=== PATIENT | male | born 1960 | race Caucasian/White ===

== ENCOUNTER 2017-12-26 13:59 | Inpatient (IN) | payer OTHER ==
[2017-12-26] MEDS ORDERED: Bupivacaine 0.25% HCL 30 ML VIAL ONE (14:56)
[2017-12-26] MEDS ORDERED: Lidocaine 1% w/Epinephrine 1:200K 30 ML VIAL ONE (14:56)
[2017-12-26] MEDS ORDERED: Ondansetron HCl/PF 4 MG/2 ML Vial ONE ×2 (15:11→16:02)
--- NOTE | 2017-12-26 15:33 | HP ---
DATE OF ADMISSION: 12/26/2017 HISTORY OF PRESENT ILLNESS: This is a 57-year-old obese man who was seen earlier today in [place] [facility]. The patient complain of insidious onset periumbilical abdominal p ain, which started yesterday associated with multiple episodes of nausea, but no emesis. Workup was consistent with acute appendicitis. The patient was transferred to [facility] in [place], [place]. At the time of my evaluation, the patient is awake and alert. He reports 8/10 right lower quadrant a bdominal pain associated with nausea and anorexia. He denies any fevers or chills. He denies any di arrhea. Last meal was yesterday. PAST MEDICAL HISTORY: Significant for coronary arterial disease, essential hypertension, hyperlipide treasure, gout, hypothyroidism, and type 2 diabetes mellitus. SURGICAL HISTORY: Significant for coronary arterial bypass with graft. He does not recall how many vessels. This was 10 years ago. Surgical history includes laparoscopic herniorrhaphy and right shou lder repair of rotator cuff. SOCIAL HISTORY: He is a retired brokerage manager. He had over [id number] cigarette smoking history, has not smoked over the last 3 years. He use to drink heavily, does not indulge for over 3 years now. He d enies any illicit drug abuse. FAMILY HISTORY: Noncontributory for this patient's age. PREHOSPITALIZATION MEDICATIONS: Includes trazodone 100 mg p.o. at bedtime, Zoloft 150 mg p.o. daily, pantoprazole 40 mg p.o. daily, lisinopril 20 mg p.o. b.i.d., levothyroxine 25 mcg p.o. daily, gabape ntin 600 mg p.o. t.i.d., Advair Diskus 250/50 one inhaled b.i.d., atorvastatin 40 mg p.o. at bedtime, atenolol 50 mg p.o. b.i.d., aspirin 81 mg p.o. daily, amlodipine 10 mg p.o. daily, allopurinol, he d oes not recall the dosage and he takes this 1 daily. He uses albuterol inhaler p.r.n. The patient w as also on Lantus insulin 60 units q.p.m. and 70 units q.a.m. REVIEW OF SYSTEMS: A 10-point review of systems essentially unremarkable except for as stated in pas t medical history and chief complaint. PHYSICAL EXAMINATION: GENERAL: This reveals a 57-year-old morbidly obese man who is otherwise coherent and interactive and appears stated age. The patient is alert and oriented x3, appears to be in no significant acute dis tress at the time of my evaluation. VITAL SIGNS: Include blood pressure 108/68, pulse 78, respiratory rate 16, temperature 97.6 degrees Fahrenheit, oxygen saturation 94% on 2 liters by nasal cannula oxygen. HEENT: Reveals normocephalic and atraumatic. Pupils equal, round, and reactive to light and accommo dation. He has no sclerae icterus present. No jugular venous distention noted. CARDIOVASCULAR: Reveals regular rate and rhythm. No murmurs or gallops auscultated. LUNGS: Clear to auscultation bilaterally. Breathing regular and unlabored. ABDOMEN: Soft and obese. He has right lower quadrant tenderness to palpation. He has a positive Ro vsing sign. Liver and spleen are otherwise nonpalpable below costal margins. EXTREMITIES: Reveals 2+ radial and pedal pulses bilaterally. No ankle edema is present. NEUROLOGIC: Reveals no focal deficits present. PERTINENT LABORATORY DATA AND IMAGING: Includes CBC with 16,200 white blood cells, hemoglobin 14.6, hematocrit is 47.0, platelet count is 249,000. Metabolic profile: Sodium 136, potassium is 4.8, chl oride is 98, bicarbonate 28, BUN 16, creatinine is 1.53, glucose is 193 mg per deciliter. I have per sonally reviewed a CT scan of the abdomen and pelvis which was obtained in [place] prior to marquis sfer, which reveals dilated appendix which is fluid filled with significant periappendiceal fat stran ding. No pneumoperitoneum or significant free fluid is noted to suggest perforation. IMPRESSION: 1. Acute appendicitis. 2. Morbid obesity. 3. History of coronary artery disease. 4. History of type 2 diabetes mellitus. 5. History of essential hypertension. 6. History of chronic obstructive pulmonary disease. PLAN: Laparoscopic appendectomy. The above findings and plan has been discussed with the patient in the presence of his nurse. I have advised the patient of the risks and benefits of the proposed terell terese. Risks include, but not limited to bleeding, infection, injury to bowel or surrounding structur es. Additionally, the patient is at risk for having a perioperative myocardial infarction or difficu lties with extubation postoperatively. This is due to his significant comorbidity. The patient joshua cates understanding of information I have given him today. I have answered his questions. The patie nt has granted consent for this admission and surgical intervention.
[2017-12-26] MEDS ORDERED: ePHEDrine/0.9% NaCl/PF SYRINGE 50 mg/10 ml ONE (16:02)
[2017-12-26] MEDS ORDERED: Succinylcholine Chloride 20 MG/ML 10 ml SYRINGE FS ONE (16:02)
[2017-12-26] MEDS ORDERED: Hydrocortisone Sod Succ/PF 100 mg/2 ml Vial ONE (16:02)
[2017-12-26] MEDS ORDERED: Lidocaine 1% PF 5 ML VIAL ONE (16:02)
[2017-12-26] MEDS ORDERED: Naloxone HCl 0.4 mg/ml Vial ONE (16:02)
[2017-12-26] MEDS ORDERED: PHENYLEPHRINE-NS 100 MCG/ML 10 ML SYRINGE ONE (16:02)
[2017-12-26] MEDS ORDERED: Morphine 10 MG/ML VIAL ONE (16:07)
[2017-12-26] MEDS ORDERED: Fentanyl 100 MCG/2 ML VIAL ONE (16:07)
[2017-12-26] MEDS ORDERED: SUGAMMADEX SODIUM 500 MG/5 ML VIAL ONE (18:10)
[2017-12-26] MEDS ORDERED: SUGAMMADEX SODIUM 200 MG/2 ML VIAL ONE (18:11)
[2017-12-26] MEDS ORDERED: Ondansetron HCl/PF 4 MG/2 ML Vial IVP PRN (18:19)
[2017-12-26] MEDS ORDERED: Insulin Regular 300 UNITS/3 ML VIAL SC PRN (18:19)
[2017-12-26] MEDS ORDERED: Promethazine HCl 25 MG/ML VIAL IM PRN (18:19)
[2017-12-26] MEDS ORDERED: Morphine 4 MG/ML Carpuject SLOW IVP PRN (18:19)
[2017-12-26] MEDS ORDERED: Dextrose 5% in Water 1,000 ML IV PRN ×2 (18:19→21:41)
[2017-12-26] MEDS ORDERED: hydrALAZINE 20 MG/ML VIAL SLOW IVP PRN (18:19)
[2017-12-26] MEDS ORDERED: Dextrose 50% Abboject 50 ML SYRINGE SLOW IVP PRN ×2 (18:19→21:41)
[2017-12-26 20:00] LABS: #Eosinphils 0.1 thou/uL (0.0-0.7); #Lymphocytes 2.6 thou/uL (1.20-3.40); #Neutrophils 12.1 thou/uL (1.40-6.50); %Eosinophils 0.8 % (0.0-10.0); %Lymphocytes 16.7 % (21.0-51.0); %Monocytes 6.3 % (0.0-10.0); %Neutrophils 76.2 % (42.0-75.0); Hemoglobin 13.3 g/dL (14.0-18.0); Mean Corpuscular HGB CONC 31.4 g/dL (32.0-36.0); Mean Corpuscular Hemoglobin 29.3 pg (27.0-31.0); Mean Corpuscular Volume 93.3 fl (80.0-94.0); Mean Platelet Volume 7.6 fL (7.4-10.4); Platelet Count 223 thou/uL (130-400); RBC Distribution Width 15.5 % (11.5-14.5); Red Blood Cell (RBC) Count 4.54 mill/uL (4.70-6.10); White Blood Cell (WBC) Count 15.8 thou/uL (4.8-10.8)
--- NOTE | 2017-12-26 20:12 | RAD ---
CHEST ONE VIEW 12/26/17 HISTORY: Respiratory failure. COMPARISON: Chest radiograph 03/15/17. FINDINGS: The patient is intubated. Endotracheal tube tip is above the clavicles. The lungs are hypoinflated. S mall left effusion. Mild interstitial prominence. Calcified granulomas as well as mediastinal lymph nodes. IMPRESSION: 1. Endotracheal tube tip position above the clavicles. 2. Small left effusion. 3. Multiple old left sided rib fractures. 4. Mild interstitial prominence can be seen with pulmonary venous hypertension. POS: [facility]
[2017-12-26 20:19] LABS: Anion Gap 11 mmol/L (10-20); BUN (Urea Nitrogen) 17 mg/dL (8.4-25.7); Calc. Creatinine Clearance 0 mL/min (70-130); Calcium 8.1 mg/dL (7.8-10.44); Carbon Dioxide 27 mmol/L (22-29); Chloride 103 mmol/L (98-107); Estimated GFR-MDRD 42; Glucose 191 mg/dL (70-105); Magnesium 1.5 mg/dL (1.6-2.6); Phosphorus 3.5 mg/dL (2.3-4.7); Potassium 5.7 mmol/L (3.5-5.1); Sodium 135 mmol/L (136-145)
[2017-12-26 20:26] LABS: Troponin I 0.014 ng/mL (< 0.028)
--- NOTE | 2017-12-26 20:56 | OP ---
DATE OF OPERATION: 12/26/2017 PREOPERATIVE DIAGNOSIS: Acute appendicitis. POSTOPERATIVE DIAGNOSIS: Acute suppurative retrocecal appendicitis with local perforation. SURGERY PERFORMED: Laparoscopic appendectomy. SURGEON: Dr. Ulysses Traylor. ANESTHESIA: General endotracheal. ESTIMATED BLOOD LOSS: 50 mL. FLUIDS GIVEN: 3000 mL crystalloids. SPONGE AND INSTRUMENT COUNT: Certified as correct x2. COMPLICATIONS: None apparent at the time of operation. INDICATIONS FOR OPERATION: This is a 57-year-old morbidly obese man with history of harrington ry artery disease, diabetes mellitus, COPD, and essential hypertension. Patient presented with 24-ho ur history of abdominal pain. Clinical and radiographic examination was consistent with acute append icitis, for which patient was brought to the operating room for appendectomy. FINDINGS: Consistent with dilated suppurative retrocecal appendicitis with local perforation. No ab scess found. DESCRIPTION OF PROCEDURE: Informed consent obtained from the patient who was brought to the operatin g room and placed in supine position. Following general anesthesia, Rasheed catheter was inserted and placed to bedside drain. The abdomen was sterilely prepped and draped in the usual fashion. The ski n below the umbilicus was infiltrated with 0.25% Marcaine with epinephrine. Small curvilinear infrau mbilical incision is made using an 11 scalpel. Umbilical stalk was grasped with Paul and elevated. A Veress needle was inserted through the incision and placed in the peritoneal cavity, through whic h the abdomen was insufflated with 3 liters of CO2 gas. An intra-abdominal pressure was noted at 2 m mHg. Following abdominal insufflation, Veress needle was removed and a 5-mm trocar inserted into the peritoneal cavity using Visiport under laparoscopy. Laparoscopy confirmed proper placement of the p ort, no injuries to underlying structures. Additional laparoscopy reveals the right lower quadrant c ompletely encased by omental adhesions as well as multiple adherent loops of small bowel. Under lapa roscopy, a 5-mm suprapubic and 12-mm left lower quadrant ports were placed after the overlying skin w ere infiltrated with 0.25% Marcaine with epinephrine and appropriate incisions made. Patient was alberto dena in a Trendelenburg position, rotated to his left. Under laparoscopy, I introduced Prestige grasp er from the left lower quadrant port site using this to bluntly take down omental adhesions to reveal adherent multiple loops of small bowel, which were bluntly taken down without any injuries to bowel itself. The retrocecal appendix is noted with local perforation approximately 3 cm above the ileocec al junction. The tip of the appendix itself was adhered to the neighboring sigmoid colon. Too large epiploic fat attempted to patch the local perforation. At this juncture, an Endo Racquel forceps wa s then used to grasp the appendix, which was elevated. I used [place] dissector to create a rent th rough the mesoappendix at the base, through which an Endo-ANDREW with a white load was introduced and th e mesoappendix was divided. Using blue load of the Endo-ANDREW, the appendix itself was divided at the base. The suppurative appendix delivered out of the abdominal cavity using an EndoCatch. Operative site was inspected for good hemostasis. Finding no other pathology, laparoscopy was terminated. Fas azar of the left lower quadrant ports were closed using 0-Vicryl suture and Endo closure device under laparoscopy. Once this suture was placed in the left lower quadrant port site, active bleeding was n oted at the site, at which time we lost approximately 50 mL of blood. Hemostasis was readily achieve d once the suture was cinched into place. The abdomen was then irrigated with saline. Next, #19 Luis Alberto ke drain was introduced into the pelvis and allowed to exit the abdominal cavity through the suprapub ic port site. Abdomen was desufflated. Next, all sponges and instruments were removed and accounted for. Skin incisions are then closed using 4-0 Monocryl suture in subcuticular fashion. The drain w as secured to intraabdominal wall using 2-0 silk suture. Dermabond was applied over an incisional cl osure. Patient tolerated the operation without any apparent complication and was returned to recover y room in satisfactory condition.
[2017-12-26] MEDS ORDERED: Magnesium Sulfate 4 GM in Sodium Chloride 0.9% 250 ML 250 ML IVPB SCH (21:00)
[2017-12-26] MEDS: Lactated Ringer's 1,000 ML IV SCH (21:05)
[2017-12-26] MEDS: Atorvastatin Calcium 40 MG TAB PO SCH (21:36)
[2017-12-26] MEDS: traZODone HCl 50 MG TAB PO SCH (21:36)
[2017-12-26] MEDS: traMADol HCl 50 MG TAB PO PRN (21:39)
[2017-12-26] MEDS ORDERED: HumaLOG 300 UNITS/3 ML VIAL SC PRN (21:41)
[2017-12-26 21:56] VITALS: BMI 30.9
[2017-12-27] MEDS: Acetaminophen 500 MG TAB PO SCH ×5 (00:20→23:05)
[2017-12-27] MEDS: Piperacillin/Tazobactam 3.375 GM in Sodium Chloride 0.9% 100 ML IVPB SCH ×5 (01:09→23:04)
[2017-12-27] MEDS: Lactated Ringer's 1,000 ML IV SCH (04:21)
[2017-12-27 04:24] LABS: #Lymphocytes 0.7 thou/uL (1.20-3.40); #Monocytes 0.2 thou/uL (0.11-0.59); #Neutrophils 11.5 thou/uL (1.40-6.50); %Basophils 0.1 % (0.0-1.0); %Eosinophils 0.3 % (0.0-10.0); %Lymphocytes 5.4 % (21.0-51.0); %Monocytes 1.3 % (0.0-10.0); %Neutrophils 92.9 % (42.0-75.0); Hemoglobin 12.9 g/dL (14.0-18.0); Mean Corpuscular Hemoglobin 28.9 pg (27.0-31.0); Mean Corpuscular Volume 93.5 fl (80.0-94.0); Mean Platelet Volume 7.8 fL (7.4-10.4); Platelet Count 227 thou/uL (130-400); RBC Distribution Width 15.2 % (11.5-14.5); Red Blood Cell (RBC) Count 4.46 mill/uL (4.70-6.10); White Blood Cell (WBC) Count 12.4 thou/uL (4.8-10.8)
[2017-12-27 04:42] LABS: Anion Gap 12 mmol/L (10-20); BUN (Urea Nitrogen) 22 mg/dL (8.4-25.7); Calc. Creatinine Clearance 54 mL/min (70-130); Calcium 8.4 mg/dL (7.8-10.44); Carbon Dioxide 26 mmol/L (22-29); Chloride 97 mmol/L (98-107); Estimated GFR-MDRD 39; Glucose 374 mg/dL (70-105); Magnesium 2.8 mg/dL (1.6-2.6); Phosphorus 3.5 mg/dL (2.3-4.7); Potassium 5.7 mmol/L (3.5-5.1); Sodium 129 mmol/L (136-145)
[2017-12-27] MEDS: traMADol HCl 50 MG TAB PO PRN ×2 (05:09→11:26)
[2017-12-27] MEDS: Levothyroxine Sodium 25 MCG TAB PO SCH (05:59)
[2017-12-27] MEDS ORDERED: Insulin Regular 300 UNITS/3 ML VIAL SC PRN (09:07)
[2017-12-27] MEDS ORDERED: Bisacodyl 10 MG SUPP PR PRN (09:11)
[2017-12-27] MEDS: Allopurinol 300 MG TAB PO SCH (09:14)
[2017-12-27] MEDS: Enoxaparin Sodium 40 MG/0.4 ML SYRINGE SC SCH (09:14)
[2017-12-27] MEDS: Gabapentin 300 MG CAP PO SCH ×3 (09:17→20:07)
[2017-12-27] MEDS ORDERED: Sodium Chloride 0.9% 1,000 ML IV SCH ×2 (11:00→16:16)
[2017-12-27] MEDS ORDERED: Tamsulosin HCl 0.4 MG CAP PO SCH (11:00)
[2017-12-27] MEDS: Insulin Regular 300 UNITS/3 ML VIAL SC PRN ×2 (11:58→18:02)
--- NOTE | 2017-12-27 14:17 | PRG ---
DATE OF SERVICE: 12/27/2017 HISTORY: This is a 57-year-old man who is postoperative day #1, status post laparoscopic appendectom y. Patient reports adequate pain control. He tolerates a clear liquid diet. Denies any nausea or v omiting. Yesterday, patient had a slow postoperative recovery marked by hypoxemia requiring multiple courses of bronchodilator therapy as well as O2 supplementation via nasal cannula. OBJECTIVE: VITAL SIGNS: This morning includes blood pressure 126/68, pulse 97, respiratory rate is 20, temperat ure 98 degrees Fahrenheit, oxygen saturation 90% on 2 liters by nasal cannula oxygen. HEENT: Examination reveals normocephalic and atraumatic. Pupils are equal, round, reactive to light and accommodation. NECK: He has no jugular venous distention noted. HEART: Reveals regular rate and rhythm. No murmurs or gallops auscultated. LUNGS: Clear to auscultation bilaterally. Breathing regular and unlabored. ABDOMEN: Soft and distended with incisional tenderness to palpation. Bowel sounds in all 4 quadrant s, normoactive. LABORATORY DATA: Laboratory findings today includes CBC with 12,400 white blood cells, hemoglobin an d hematocrit stable at 12.9 and 41.7 respectively. Platelet count is 227,000. Metabolic profile: S odium 129, potassium is 5.7, chloride is 97, BUN is 22, creatinine is 1.80, and glucose is 374. Magn esium is 2.8, phosphorus is 3.5. IMPRESSION: 1. Postoperative day #1 status post laparoscopic appendectomy for gangrenous appendix. 2. Postoperative ileus. 3. Postoperative hypoxemia, likely secondary to atelectasis. 4. Acute hyponatremia, likely pseudohyponatremia secondary to hyperglycemia. 5. Acute hyperkalemia. 6. Acute on chronic renal insufficiency. PLAN: 1. Continue with nasal cannula oxygen supplementation and increase pulmonary toilet. 2. We will reinitiate IV fluid resuscitation using normal saline. 3. The patient will be provided with insulin to treat current hyperglycemia as well as the hyperkale treasure. 4. We will continue with a clear liquid diet at this time until adequate return of bowel function. The patient will be transferred to general floor to facilitate increasing activity.
[2017-12-27] MEDS: traZODone HCl 50 MG TAB PO SCH (20:07)
[2017-12-27] MEDS: Famotidine 20 MG TAB PO SCH (20:07)
[2017-12-27] MEDS: Atorvastatin Calcium 40 MG TAB PO SCH (20:07)
[2017-12-27] MEDS: Senokot S 8.6-50 MG TAB PO SCH (20:07)
[2017-12-27] MEDS ORDERED: Furosemide 40 MG/4 ML VIAL SLOW IVP SCH (21:30)
[2017-12-28] MEDS: Insulin Regular 300 UNITS/3 ML VIAL SC PRN ×5 (00:49→21:00)
[2017-12-28 04:34] LABS: Anion Gap 9 mmol/L (10-20); BUN (Urea Nitrogen) 29 mg/dL (8.4-25.7); Calc. Creatinine Clearance 50 mL/min (70-130); Calcium 8.7 mg/dL (7.8-10.44); Carbon Dioxide 30 mmol/L (22-29); Chloride 93 mmol/L (98-107); Estimated GFR-MDRD 35; Glucose 287 mg/dL (70-105); Magnesium 2.4 mg/dL (1.6-2.6); Phosphorus 2.9 mg/dL (2.3-4.7); Potassium 5.4 mmol/L (3.5-5.1); Sodium 127 mmol/L (136-145)
--- NOTE | 2017-12-28 06:26 | PRG ---
DATE OF SERVICE: 12/27/2017 SUBJECTIVE: This is a 57-year-old male with postop day #1 from laparoscopic appendectomy. At this t jeanette, the patient is currently satting in the high 80s with no respiratory distress noted. OBJECTIVE: Vital signs have been reviewed. Otherwise, as noted above, have been stable. Physical e xam - Lung sounds appear to be clear, somewhat small expiratory wheeze on the right. Abdomen is mild ly distended. Generalized tenderness noted. Hypoactive bowel sounds. ASSESSMENT AND PLAN: Continue care as noted in daily progress note. due to the hypoxemia. Cu rrently 40 mg Lasix have been ordered and BiPAP for tonight. Continue to monitor. Discharge disposi tion is pending.
[2017-12-28] MEDS: Acetaminophen 500 MG TAB PO SCH ×3 (06:32→17:26)
[2017-12-28] MEDS: Levothyroxine Sodium 25 MCG TAB PO SCH (06:32)
[2017-12-28] MEDS: Piperacillin/Tazobactam 3.375 GM in Sodium Chloride 0.9% 100 ML IVPB SCH ×3 (06:32→17:26)
[2017-12-28 08:39] LABS: #Lymphocytes 0.9 thou/uL (1.20-3.40); #Monocytes 0.4 thou/uL (0.11-0.59); #Neutrophils 13.1 thou/uL (1.40-6.50); %Basophils 0.1 % (0.0-1.0); %Eosinophils 0.2 % (0.0-10.0); %Monocytes 2.9 % (0.0-10.0); %Neutrophils 90.8 % (42.0-75.0); Hemoglobin 12.4 g/dL (14.0-18.0); Mean Corpuscular HGB CONC 30.5 g/dL (32.0-36.0); Mean Corpuscular Hemoglobin 28.4 pg (27.0-31.0); Mean Corpuscular Volume 93.2 fl (80.0-94.0); Mean Platelet Volume 7.7 fL (7.4-10.4); Platelet Count 263 thou/uL (130-400); RBC Distribution Width 15.1 % (11.5-14.5); Red Blood Cell (RBC) Count 4.37 mill/uL (4.70-6.10); White Blood Cell (WBC) Count 14.4 thou/uL (4.8-10.8)
[2017-12-28] MEDS ORDERED: Bisacodyl 10 MG SUPP PR SCH (09:00)
[2017-12-28] MEDS: Gabapentin 300 MG CAP PO SCH ×3 (09:18→20:41)
[2017-12-28] MEDS: Tamsulosin HCl 0.4 MG CAP PO SCH (09:18)
[2017-12-28] MEDS: Senokot S 8.6-50 MG TAB PO SCH ×2 (09:18→20:41)
[2017-12-28] MEDS: Enoxaparin Sodium 40 MG/0.4 ML SYRINGE SC SCH (09:19)
[2017-12-28] MEDS: traMADol HCl 50 MG TAB PO PRN (09:19)
[2017-12-28] MEDS: Allopurinol 300 MG TAB PO SCH (09:23)
[2017-12-28] MEDS: Insulin Detemir 100 UNITS/ML 13 UNITS in Pre-Filled Syringe 1 EACH SC SCH (09:44)
--- NOTE | 2017-12-28 10:47 | PRG ---
DATE OF SERVICE: 12/28/2017 SUBJECTIVE: Mr. Frank is postoperative day #2, status post laparoscopic appendectomy for gangrenous appendix. Overnight, the patient required high fraction of oxygen to treat acute hypoxemia. He was given a dose of furosemide achieving over 1000 mL of urinary output. Placed on BiPAP overnight. This morning, patient is awake and alert. He is on nasal cannula oxygen and reports no dyspnea. He is tolerating clear liquid diet, has had no emesis or nausea. He denies any flatus or bowel movement nevertheless. OBJECTIVE: VITAL SIGNS: Currently includes blood pressure 152/86, pulse 96, respiratory rate 16, temperature is 98.9 degrees Fahrenheit and oxygen saturation 99% on 2 liters by nasal cannula oxygen. HEENT: Reveals normocephalic and atraumatic. Pupils are equally round and reactive to light and acc ommodation. His extraocular muscles are intact bilaterally. No sclerae icterus present. The patien t has no jugular venous distention noted. HEART: Reveals regular rate and rhythm. No murmurs or gallops auscultated. LUNGS: Clear to auscultation bilaterally. Breathing regular and unlabored. ABDOMEN: Soft and distended. Incisions remain intact, clean, and dry. He has moderate incisional t enderness to palpation with no gross rebound tenderness present. Bowel sounds in all four quadrants appear normoactive. EXTREMITIES: Reveals 2+ radial and pedal pulses bilaterally. No ankle edema is present. NEUROLOGIC: Reveals no focal deficits present. PERTINENT LABORATORY FINDINGS: Today includes a CBC with 14,400 white blood cells, hemoglobin and he matocrit are stable at 12.4 and 40.7 respectively. Platelet count is stable at 263,000. Metabolic profile: Sodium 127, potassium is 5.4, chloride is 93, bicarbonate 30, BUN 29, creatinine is 1.97, glucose is 287, magnesium 2.4 and phosphorus is 2.9. IMPRESSION: 1. Postoperative day #2, status post laparoscopic appendectomy. 2. Acute on chronic renal insufficiency, likely acute tubular necrosis secondary to karli-induction h ypertension. 3. Acute hyponatremia secondary to increasing free water intake, complicated by also acute pseudohyp onatremia. 4. Resolving acute hyperkalemia. 5. Acute hyperglycemia, improving. PLAN: 1. Continue gentle rehydration. 2. I will ask Nephrology to evaluate the patient with regards to the acute on chronic renal insuffic iency. Above findings and plan discussed with the patient who indicates understanding of the informa tion given. The patient will be transferred to general surgical floor where I will continue to increase his activ ities as tolerated.
--- NOTE | 2017-12-28 11:13 | PQF ---
DATE: 12-28-17 ATTN: DR. OMER SOUSA Please exercise your independent, professional judgment in responding to the clarification form. Clinical indicators are provided on the bottom of this form for your review Please check appropriate box(s): [ X ] Acute Renal Failure (ARF) / Acute Kidney Injury (CARMINA) [ ] Acute on Chronic Renal Failure please specify Stage of CKD (see below) [ X ] CKD without ARF/CARMINA please specify Stage of CKD____Stage III [ ] Other diagnosis [ ] Unable to determine In addition, please specify: Present on Admission (POA): [X ] Yes [ ] No [ ] Unable to determine National Kidney Foundation Guidelines for CKD Staging Stage I Kidney damage with normal or increased GFR GFR > 90 Stage IIKidney damage with mildly decreased GFR GFR 60-89 Stage III Kidney damage with moderately decreased GFR GFR 30-59 Stage IVKidney damage with severely decreased GFR GFR 16-29 Stage VKidney failure GFR<15 ESRD End Stage Renal Disease On dialysis Acute Renal Failure/Acute Kidney Failure defined as: Increases in SCr by (>) 0.3 mg/dl within 48 hours OR- Increases in SCr by (>) 1.5 times baseline, known or presumed to have occurred within the prior 7 days OR- Urine volume < 0.5 ml/kg/hour for 6 hours (KDIGO supplement 2012 for RIFLE/MELECIO criteria) For continuity of documentation, please document condition throughout progress notes and discharge summary. Thank You. CLINICAL INDICATORS - SIGNS / SYMPTOMS / LABS PN DR. SOUSA 12-27-17: ACUTE ON CHRONIC RENAL INSUFFICIENCY GFR: 2-18: 42 2-22-18: 39 2--18: 35 CREATININE: 2--18: 1.69 2-22-18: 1.80 2-23-18: 1.97 BUN: 2--18: 17 2-22-18: 22 2-23-18: 29 RISK FACTORS: PN DR. SOUSA 12-27-17: ACUTE ON CHRONIC RENAL INSUFFICIENCY ER: DM 2, HYPERLIPIDEMIA, HTN, COPD, NH, CABG , TOBACCO USER, FORMER DRUG USER (MAR ) LASIX IVP TREATMENTS: PN DR. SOUSA 12-07-17: WE WILL REINITIATE IVF RESUSCITATION USING NS (This form is maintained as a part of the permanent medical record) 2014 [employer]. All Rights Reserved [email or web address] [email or web address] Office: [phone] DIA
--- NOTE | 2017-12-28 11:36 | PQF ---
DATE: 12-28-17 ATTN: DR. OMER SOUSA Please exercise your independent, professional judgment in responding to the clarification form. Clinical indicators are provided on the bottom of this form for your review Please check appropriate box(s): [ ] Acute Respiratory Failure: [ X ] with Hypoxia[ ] with Hypercapnia [ X] Acute Respiratory Failure due to COPD [ ] Acute Respiratory Insufficiency following (if applicable): [ ] trauma [ ] surgery [ ] Other diagnosis [ ] Unable to determine In addition, please specify: Present on Admission (POA): [ X] Yes [ ] No [ ] Unable to determine For continuity of documentation, please document condition throughout progress notes and discharge summary. Thank You. CLINICAL INDICATORS - SIGNS / SYMPTOMS / LABS PN DR. SOUSA 12-27-17: YESTERDAY, PT HAD A SLOW POSTOPERATIVE RECOVERY MARKED BY HYPOXEMIA REQUIRING MULTIPLE COURSES OF BRONCHODILATORS THERAPY WELL O2 SUPPLEMENTAL VIA NASAL CANULA. O2 SAT 90% ON 2L BY NASAL CANNULA. POSTOPERATIVE HYPOXEMIA, LIKELY SECONDARY TO ATELECTASIS. RISK FACTORS: PROCEDURE: 12-26-17: LAP APPENDECTOMY H&P: HX OF SMOKING, HX OF COPD TREATMENTS: O2 2-4 L NC MONITORING O2 SATS PN DR. SOUSA 12-27-17: YESTERDAY, PT HAD A SLOW POSTOPERATIVE RECOVERY MARKED BY HYPOXEMIA REQUIRING MULTIPLE COURSES OF BRONCHODILATOR THERAPY WELL O2 SUPPLEMENTAL VIA NASAL CANULA. O2 SAT 90% ON 2L BY NASAL CANNULA. POSTOPERATIVE HYPOXEMIA, LIKELY SECONDARY TO ATELECTASIS. (This form is maintained as a part of the permanent medical record) 2015 [employer]. All Rights Reserved [email or web address] Office: [phone] [facility] THROAT HOSPITALVadim
[2017-12-28] MEDS: Artificial Tears 18 DROP/0.9 ML EA EYE PRN (12:52)
[2017-12-28] MEDS: Atorvastatin Calcium 40 MG TAB PO SCH (20:40)
[2017-12-28] MEDS: traZODone HCl 50 MG TAB PO SCH (20:41)
[2017-12-28] MEDS: Famotidine 20 MG TAB PO SCH (20:59)
--- NOTE | 2017-12-28 22:58 | CON ---
DATE OF CONSULTATION: 12/28/2017 CONSULTING PHYSICIAN: Dr. Traylor. REASON FOR CONSULTATION: Acute kidney injury. REASON FOR ADMISSION: Abdominal pain. HISTORY OF PRESENT ILLNESS: This is a 57-year-old male with history of coronary artery disease, hype rtension, hyperlipidemia, diabetes who came to the hospital with abdominal pain, has been evaluated a nd was found to have acute appendicitis and had a laparoscopic appendectomy done on 12/26/2017 that i s 2 days back and apparently had some hypertensive episode during the procedure. Patient's creatinin e on admission was 1.69. Baseline creatinine is around 1.3 to 1.5 and this morning it was 1.97 and w ith hyperkalemia. Patient was given a dose of Lasix yesterday and patient is having significant amou nt of p.o. fluid intake. Patient denies any nausea, vomiting, no shortness of breath or chest pain, pain is controlled. No fever or chills. PAST MEDICAL HISTORY: Positive for coronary artery disease, hypertension, hyperlipidemia, gout, hypo thyroidism, type 2 diabetes. PAST SURGICAL HISTORY: Coronary artery bypass graft, hernia repair. HOME MEDICATIONS: Trazodone, Zoloft, pantoprazole, lisinopril, levothyroxine, gabapentin, Advair, at orvastatin, atenolol, aspirin, amlodipine, allopurinol, albuterol, Lantus. ALLERGIES: No known drug allergies. SOCIAL HISTORY: Previous smoker and drinks heavily. No illicit drug abuse. FAMILY HISTORY: No history of kidney disease. REVIEW OF SYSTEMS: The following complete review of systems was negative, unless otherwise mentioned in the HPI or below: Constitutional: Weight loss or gain, ability to conduct usual activities. Sk in: Rash, itching. Eyes: Double vision, pain. ENT/Mouth: Nose bleeding, neck stiffness, pain, te nderness. Cardiovascular: Palpitations, dyspnea on exertion, orthopnea. Respiratory: Shortness of breath, wheezing, cough, hemoptysis, fever, or night sweats. Gastrointestinal: Poor appetite, abdo harsh pain, heartburn, nausea, vomiting, constipation, or diarrhea. Genitourinary: Urgency, frequen cy, dysuria, nocturia. Musculoskeletal: Pain, swelling. Neurologic/Psychiatric: Anxiety, depressi on. Allergy/Immunologic: Skin rash, bleeding tendency. PHYSICAL EXAMINATION: GENERAL: This is an obese male in no apparent distress. VITAL SIGNS: Temperature 97.9, pulse 96, respiratory rate 20, blood pressure 152/87. HEENT: Atraumatic, normocephalic. Oral mucosa is moist. NECK: Supple, no masses. CARDIOVASCULAR: S1, S2 heard. Rate and rhythm regular. No murmurs or gallops auscultated. RESPIRATORY: Crackles. ABDOMEN: Soft. MUSCULOSKELETAL: 1+ edema. DERMATOLOGIC: No skin rash. NEUROLOGIC: Alert, awake. PSYCHIATRIC: Mood and affect normal. LABORATORY DATA: Hemoglobin is 12.4. Potassium is 5.4, BUN is 29, creatinine is 1.9, sodium is 127, potassium 5.4. ASSESSMENT AND PLAN: 1. Acute kidney injury on chronic kidney disease stage 3, most likely from acute tubular necrosis, b ut seems like his urine output is improving and plan is to avoid any nephrotoxins and we will hold La six and monitor. Continue oral hydration. 2. Hyponatremia, most likely from polydipsia. Patient was advised to limit fluid intake where he ne eds probably around 2 liters of fluid. 3. Hypertension. 4. Hyperkalemia. Limit potassium with diet. 5. Alkalosis. 6. Hyperglycemia. 7. Anemia, mild. 8. Leukocytosis, getting better. 9. Acute appendicitis. It seems like his urine output is improving. Plan is to avoid nephrotoxins and monitor renal functio n at this point. We will continue to follow. I will recommend changing Lovenox to heparin renally-d osed and avoid nephrotoxins. Thank you for the consultation. Continue antibiotics and supportive care.
--- NOTE | 2017-12-28 23:43 | PRG ---
DATE OF SERVICE: 12/28/2017 SUBJECTIVE: He is postop day #2 from laparoscopic appendectomy for gangrenous appendix. No flatus or bowel movements at this time. No vomiting or nausea. OBJECTIVE: VITAL SIGNS: Vital signs have been reviewed, otherwise have been stable. Physical exam is unchanged other than noted in the daily progress note. ASSESSMENT AND PLAN: Continue care as noted in the daily progress noted. Continue to monitor. Disc harge disposition is pending. We are awaiting bowel movement and flatus.
[2017-12-29] MEDS: Piperacillin/Tazobactam 3.375 GM in Sodium Chloride 0.9% 100 ML IVPB SCH ×5 (00:04→20:49)
[2017-12-29] MEDS: Acetaminophen 500 MG TAB PO SCH ×5 (02:00→23:54)
[2017-12-29 05:00] LABS: #Monocytes 0.4 thou/uL (0.11-0.59); #Neutrophils 11.8 thou/uL (1.40-6.50); %Basophils 0.1 % (0.0-1.0); %Eosinophils 0.1 % (0.0-10.0); %Lymphocytes 7.4 % (21.0-51.0); %Monocytes 3.1 % (0.0-10.0); %Neutrophils 89.4 % (42.0-75.0); Anion Gap 14 mmol/L (10-20); BUN (Urea Nitrogen) 33 mg/dL (8.4-25.7); Calc. Creatinine Clearance 58 mL/min (70-130); Calcium 9.1 mg/dL (7.8-10.44); Carbon Dioxide 30 mmol/L (22-29); Chloride 91 mmol/L (98-107); Estimated GFR-MDRD 42; Glucose 291 mg/dL (70-105); Hemoglobin 12.8 g/dL (14.0-18.0); Magnesium 2.2 mg/dL (1.6-2.6); Mean Corpuscular HGB CONC 31.4 g/dL (32.0-36.0); Mean Corpuscular Hemoglobin 28.6 pg (27.0-31.0); Mean Corpuscular Volume 90.9 fl (80.0-94.0); Mean Platelet Volume 7.4 fL (7.4-10.4); Phosphorus 2.7 mg/dL (2.3-4.7); Platelet Count 301 thou/uL (130-400); Potassium 5.5 mmol/L (3.5-5.1); RBC Distribution Width 15.1 % (11.5-14.5); Red Blood Cell (RBC) Count 4.48 mill/uL (4.70-6.10); Sodium 129 mmol/L (136-145); White Blood Cell (WBC) Count 13.3 thou/uL (4.8-10.8)
[2017-12-29] MEDS: Levothyroxine Sodium 25 MCG TAB PO SCH (06:28)
[2017-12-29] MEDS: Gabapentin 300 MG CAP PO SCH ×3 (07:34→20:50)
[2017-12-29] MEDS: Allopurinol 300 MG TAB PO SCH (07:34)
[2017-12-29] MEDS: Insulin Detemir 100 UNITS/ML 13 UNITS in Pre-Filled Syringe 1 EACH SC SCH (07:35)
[2017-12-29] MEDS: Senokot S 8.6-50 MG TAB PO SCH ×2 (07:35→22:18)
[2017-12-29] MEDS: Tamsulosin HCl 0.4 MG CAP PO SCH (07:35)
[2017-12-29] MEDS: Enoxaparin Sodium 40 MG/0.4 ML SYRINGE SC SCH (07:36)
[2017-12-29] MEDS: Insulin Regular 300 UNITS/3 ML VIAL SC PRN ×3 (11:34→20:55)
[2017-12-29] MEDS ORDERED: Fludrocortisone Acetate 0.1 MG TAB PO SCH (12:00)
--- NOTE | 2017-12-29 12:13 | PRG ---
DATE OF SERVICE: 12/29/2017 SUBJECTIVE: Patient was seen and examined at bedside and overnight events noted. Patient denies any shortness of breath or chest pain or palpitation. No history of nausea or vomitin g or diarrhea or fever or chills or cramps. OBJECTIVE: GENERAL: This is a well-built male, in no apparent distress. VITAL SIGNS: Temperature 98.1, pulse 90, respiratory rate 18, blood pressure 116/89. HEENT: Atraumatic, normocephalic. Oral mucosa is moist NECK: Supple. CARDIOVASCULAR: S1 and S2 heard. Rate and rhythm regular. RESPIRATORY: Clear to auscultation. GASTROINTESTINAL: Abdomen is soft. MUSCULOSKELETAL: No tenderness. No edema. DERMATOLOGIC: No skin rash. NEUROLOGIC: Alert and awake and oriented X3, No focal neurologic deficits. Moving all the extremitie s. PSYCHIATRIC: Mood and affect normal. LABORATORY DATA: Potassium is 5.5, BUN 33, creatinine 1.6. ASSESSMENT AND PLAN: 1. Acute kidney injury on chronic kidney disease. Renal function is better. 2. Hyperkalemia. 3. Hyponatremia, limit fluid intake. 4. Hyperkalemia could be secondary to hyperaldosteronism, currently on heparin. We will give one do se of fludrocortisone given the hyponatremia. 5. Alkalosis. 6. Anemia, mild. 7. Leukocytosis. 8. Acute appendicitis. Check cortisol level in the morning and will follow.
--- NOTE | 2017-12-29 12:46 | PRG ---
DATE OF SERVICE: 12/29/2017 SUBJECTIVE: Mr. Frank is a 57-year-old obese man who is postoperative day #3 status post laparoscop ic appendectomy for gangrenous appendix. The patient is awake and alert. Reports adequate pain cont rol. He is passing flatus and had three loose bowel movements overnight. Denies any nausea or vomit ing. Urinary output has been adequate. He has maintained adequate oral intake. OBJECTIVE: VITAL SIGNS: Today includes blood pressure 166/78, pulse is 89, respiratory rate is 16, maximum temp erature in the last 24 hours is 98.4 degrees Fahrenheit, oxygen saturation is 95% on 2 liters by nasa l cannula oxygen. HEENT: Examination reveals normocephalic and atraumatic. Pupils equal, round, reactive to light and accommodation. HEART: Reveals regular rate and rhythm. No murmurs or gallops auscultated. LUNGS: Clear to auscultation bilaterally. Breathing regular and unlabored. ABDOMEN: Soft and obese. He has moderate tenderness to palpation which is incisional in nature. Al l incisions remain intact, clean, and dry. Mahad-Trujillo drain returned scant serous fluid and was d iscontinued without any incident. He clearly has no peritoneal signs on examination. NEUROLOGIC: Examination reveals no focal deficits present. LABORATORY DATA: Laboratory findings today includes CBC with 13,300 white blood cells, hemoglobin is 12.8, hematocrit is 40.7, and platelet count is 301,000. Metabolic profile: Sodium 129, potassium is 5.5, chloride is 91, bicarbonate 30, BUN 33, creatinine is 1.68, glucose is 291, magnesium is 2.2, and phosphorus is 2.7. IMPRESSION: 1. Postoperative day #3, status post laparoscopic appendectomy. 2. Acute hyperglycemia, history of type 2 diabetes mellitus. 3. Resolving acute on chronic renal insufficiency. 4. Stable hyperkalemia. 5. Stable hyponatremia, which is likely of chronic nature. PLAN: 1. Increase insulin to maintain better glucose control. 2. Continue to monitor the patient's urinary output and renal function with repeat metabolic profile in the morning. 3. Increase activity as tolerated. Above findings and plan discussed with the patient who indicates understanding of information given. I answered his questions. The patient will be discharged home tomorrow if he remains hemodynamicall y and physiologically stable and blood glucose is better controlled with stable renal function.
[2017-12-29] MEDS ORDERED: Sterile Water 10 ML ONE (14:36)
[2017-12-29] MEDS: Artificial Tears 18 DROP/0.9 ML EA EYE PRN (18:43)
[2017-12-29] MEDS: traZODone HCl 50 MG TAB PO SCH (20:50)
[2017-12-29] MEDS: Atorvastatin Calcium 40 MG TAB PO SCH (20:50)
[2017-12-29] MEDS: Famotidine 20 MG TAB PO SCH (20:50)
--- NOTE | 2017-12-29 23:11 | PRG ---
DATE OF SERVICE: 12/29/2017 SUBJECTIVE: This is a 57-year-old obese male with postop day #3, status post laparoscopic appendecto my for gangrenous appendix. No acute complaints at this time. Patient is doing well. OBJECTIVE: Vital signs have been reviewed. Overall stable, physical exam otherwise unchanged. Othe rwise, noted in the daily progress note. ASSESSMENT AND PLAN: Continue care as monitored as noted in daily progress note. Continue to monito r. We will reassess in the a.m. for possible discharge. Discharge disposition is pending.
[2017-12-30 04:35] LABS: Anion Gap 8 mmol/L (10-20); BUN (Urea Nitrogen) 31 mg/dL (8.4-25.7); Calc. Creatinine Clearance 70 mL/min (70-130); Calcium 9.2 mg/dL (7.8-10.44); Carbon Dioxide 35 mmol/L (22-29); Chloride 96 mmol/L (98-107); Estimated GFR-MDRD 52; Glucose 278 mg/dL (70-105); Potassium 4.7 mmol/L (3.5-5.1); Sodium 134 mmol/L (136-145)
[2017-12-30] MEDS: Piperacillin/Tazobactam 3.375 GM in Sodium Chloride 0.9% 100 ML IVPB SCH ×2 (06:23→15:46)
[2017-12-30] MEDS: Levothyroxine Sodium 25 MCG TAB PO SCH (06:23)
[2017-12-30] MEDS: Acetaminophen 500 MG TAB PO SCH ×2 (06:23→12:04)
[2017-12-30] MEDS: Insulin Detemir 100 UNITS/ML 13 UNITS in Pre-Filled Syringe 1 EACH SC SCH (08:31)
[2017-12-30] MEDS: Tamsulosin HCl 0.4 MG CAP PO SCH (08:32)
[2017-12-30] MEDS: Senokot S 8.6-50 MG TAB PO SCH (08:32)
[2017-12-30] MEDS: Gabapentin 300 MG CAP PO SCH ×2 (08:32→15:49)
[2017-12-30] MEDS: Enoxaparin Sodium 40 MG/0.4 ML SYRINGE SC SCH (08:33)
[2017-12-30] MEDS: Allopurinol 300 MG TAB PO SCH (08:33)
[2017-12-30] MEDS ORDERED: Fludrocortisone Acetate 0.1 MG TAB PO SCH (09:00)
[2017-12-30] MEDS ORDERED: PROVENTIL INHALER 6.7 G (200 INHALATIONS) INH PRN (09:17)
[2017-12-30] MEDS ORDERED: Polyethylene Glycol 3350 17 GM Packet PO PRN (09:17)
[2017-12-30] MEDS ORDERED: Aspirin 81 mg Enteric Coated Tablet PO SCH (10:15)
[2017-12-30] MEDS ORDERED: Lisinopril 20 MG TAB PO SCH ×2 (10:15→21:00)
[2017-12-30] MEDS ORDERED: Atenolol 50 MG TAB PO SCH ×2 (10:15→21:00)
[2017-12-30] MEDS ORDERED: Amlodipine 10 MG TAB PO SCH (10:15)
[2017-12-30] MEDS ORDERED: hydrALAZINE 25 MG TAB PO SCH ×2 (10:15→21:00)
[2017-12-30] MEDS ORDERED: Cosyntropin 250 MCG VIAL SLOW IVP SCH (12:00)
[2017-12-30] MEDS: Insulin Regular 300 UNITS/3 ML VIAL SC PRN (12:26)
[2017-12-30 12:28] VITALS: BP 167/93; TEMP 98.4
[2017-12-30] MEDS: traMADol HCl 50 MG TAB PO PRN (14:14)
--- NOTE | 2017-12-30 15:39 | DIS ---
DATE OF ADMISSION: 12/26/2017 DATE OF DISCHARGE: 12/30/2017 ADMITTING PHYSICIAN: Ulysses Traylor DO PROJECT MANAGER ENTERTAINMENT AND MEDIA: Dr. Delarosa with Nephrology. ADMISSION DIAGNOSES: 1. Acute appendicitis. 2. Acute on chronic renal insufficiency. DISCHARGE DIAGNOSES: 1. Acute suppurative appendicitis with perforation. 2. Acute on chronic renal insufficiency. OPERATIONS PERFORMED: Laparoscopic appendectomy on 12/26/2017, by Kymberly. Please see separate dictat ion for the operative report. HISTORY AND HOSPITAL COURSE: A 57-year-old man with history of chronic kidney disease presented with abdominal pain. Clinical examination was consistent with acute appendicitis, for which the patient underwent an uneventful laparoscopic appendectomy on 12/26/2017. The patient has expressed periopera tive hypotension. He received fluid resuscitation. By postop day #1, his kidney function had worsened in excess of baseline. Laboratory studies were consistent with acute congestive heart failure, for which patient received 1 dose of furosemide with adequate response. By postop day #2, his respiratory function has improved a s the patient is requiring lower fraction of oxygen to resolve the hypoxemia, which was transient. Kidney function, however, had worsened. Nephrology was consulted and the patient was monitored and p laced off all nephrotoxic agents. Acute kidney insufficiency was deemed acute tubular necrosis secon babatunde to hypotensive episode perioperatively. By postop day #3, kidney function is improving. At thi s time, the patient is tolerating a general diet. He is having bowel movements. Today, he is examined again, creatinine has returned back to baseline. The patient reports adequate pain control. He is otherwise hemodynamically stable and afebrile. Abd ominal examination reveals intact and healing incisional wounds. The patient clearly has no peritoneal signs on examination. He will be discharged home today with th e following instructions: 1. He follows up with his primary care physician within 1 week of discharge. 2. He follows up with Dr. Delarosa for his chronic kidney disease. 3. He sees me in the [facility] in 2 weeks. 4. He was given a prescription for Augmentin 875 mg #14 to be taken 1 p.o. b.i.d. x7. Additionally, he was given a prescription for tramadol 50 mg #30 to be taken 1-2 p.o. q.6 hours p.r.n . pain. He may alternate this with Tylenol 1000 mg p.o. q.6 hours. The patient was instructed to resume all prehospital medication as prescribed by his primary care physician. He is to call me with any questions or problems including return of abdominal pain, intolerance to or al intake or any abnormal discharge from the incisional wounds. He is to avoid weightlifting in excess of 20 pounds until he has been released by me. He may shower, but avoid soaking himself in the bathtub or swimming until he has been released by me. These instructions were given to the patient, who indicates understanding of information given. I malone ve answered his questions. The patient has expressed gratitude for the care rendered to him during t his hospitalization and surgery.
[2017-12-30] MEDS ORDERED: Mometasone/Formoterol 120 PUFF INHALER INH SCH (18:30)
--- NOTE | 2017-12-30 20:58 | PRG ---
DATE OF SERVICE: 12/30/2017 SUBJECTIVE: Patient was seen and examined at bedside and overnight events noted. Patient denies any shortness of breath or chest pain or palpitation. No history of nausea or vomiting or diarrhea or f ever or chills or cramps. OBJECTIVE: GENERAL: This is a well-built male, in no apparent distress. VITAL SIGNS: Temperature 98.4, pulse 81, respiratory rate 20, blood pressure 167/93. HEENT: Atraumatic, normocephalic, oral mucosa is moist. NECK: Supple. CARDIOVASCULAR: S1, S2 heard, rate and rhythm regular. RESPIRATORY: Clear to auscultation. GASTROINTESTINAL: Abdomen is soft. MUSCULOSKELETAL: No tenderness, no edema. DERMATOLOGIC: No skin rash. NEUROLOGIC: Alert and awake and oriented x3. No focal neurologic deficits. Moving all the extremit ies. PSYCHIATRIC: Mood and affect normal. LABORATORY DATA: Potassium is 4.7, BUN is 31, creatinine is 1.4. ASSESSMENT AND PLAN: 1. Acute kidney injury on chronic kidney disease with good improvement. 2. Hyperkalemia, better. 3. Hyponatremia, stable. 4. Hypocortisolism, cosyntropin test with adequate response. We will monitor. 5. Hypotension. 6. Anemia, stable. 7. Leukocytosis. Okay to discharge home. Follow up with clinic in 1 week.
[2017-12-31] MEDS ORDERED: Amlodipine 10 MG TAB PO SCH (09:00)
[2017-12-31] MEDS ORDERED: Aspirin 81 mg Enteric Coated Tablet PO SCH (09:00)
[2017-12-31] MEDS ORDERED: Pantoprazole 40 MG GRANULES PACKET PO SCH (09:00)
[2017-12-31] MEDS ORDERED: Docusate Sodium 100 MG/10 ML UDCUP PO SCH (09:00)
[2017-12-31] MEDS ORDERED: Fenofibrate Nanocrystallized 145 MG TAB PO SCH (09:00)
== END 2017-12-30 16:45 | disposition home or self-care (01) | DRG 338 ==
LOC: ERS 13:59 → SDC/OP 19:00 → OBSVTOIN 19:53 → IMCU/EMU 19:53 → SURG B 12-28 11:32
PROVIDERS: ADMIT Surgery; ATTEND Surgery
PROC: 0DTJ4ZZ Resection of Appendix, Percutaneous Endoscopic Approach (ICD-10-PCS; principal; 2017-12-26)
PROC: 5A09357 Assistance with Respiratory Ventilation, Less than 24 Consecutive Hours, Continuous Positive Airway Pressure (ICD-10-PCS; 2017-12-27)
DX: K35.3 Acute appendicitis with localized peritonitis (principal); N17.0 Acute kidney failure with tubular necrosis; J96.01 Acute respiratory failure with hypoxia; E87.3 Alkalosis; E66.01 Morbid (severe) obesity due to excess calories; K56.7 Ileus, unspecified; E11.22 Type 2 diabetes mellitus with diabetic chronic kidney disease; E87.1 Hypo-osmolality and hyponatremia; E11.65 Type 2 diabetes mellitus with hyperglycemia; E03.9 Hypothyroidism, unspecified; I25.10 Atherosclerotic heart disease of native coronary artery without angina pectoris; E78.5 Hyperlipidemia, unspecified; M10.9 Gout, unspecified; I12.9 Hypertensive chronic kidney disease with stage 1 through stage 4 chronic kidney disease, or unspecified chronic kidney disease; J44.9 Chronic obstructive pulmonary disease, unspecified; N18.3 Chronic kidney disease, stage 3 (moderate); E87.5 Hyperkalemia; I50.9 Heart failure, unspecified; Z68.30 Body mass index [BMI] 30.0-30.9, adult; Z87.891 Personal history of nicotine dependence; Z79.82 Long term (current) use of aspirin; Z79.4 Long term (current) use of insulin; Z79.899 Other long term (current) drug therapy; Z95.1 Presence of aortocoronary bypass graft
CPT/HCPCS: 36415; 36416; 71045; 80048; 80400; 82533; 83735; 83880; 84100; 84300; 84484; 85025; 85379; 88304; 94640; 94660; 96374; A4216; G8978-GP-CI; G8979-GP-CI; G8980-GP-CI; J0834; J1650; J1720; J1815; J2001; J2270; J2310; J2405; J2543; J2920; J3010; J3475; J7050; J7620; S0020

== ENCOUNTER 2020-02-23 00:08 | Inpatient (IN) | payer OTHER ==
--- NOTE | 2020-02-23 01:30 | PDOC.FPRHP ---
- History of Present Illness Chief Complaint: sob History of Present Illness: 59 y/o M w/ pmhx sig for COPD, CAD, HTN, IDDM 3 days ago was installing dry wall, the following day developed productive cough , dyspnea, and wheeze. denies prior symptoms, chills, body aches, fever, sick contacts. no home 02, no hx of intubation 2/2 copd exac. using medications as prescribed. ED Course: outside ed: CXR, covid swab, cbc, cmp, bnp, trop albuterol, duoneb, lasix, nitro - Allergies/Adverse Reactions Allergies Allergy/AdvReac Type Severity Reaction Status Date / Time No Known Allergies Allergy Verified 01/24/20 22:47 - Home Medications Medication Instructions Recorded Confirmed Type Atenolol 50 mg PO BID 08/02/15 12/30/17 History Fluticasone/Salmeterol [Advair 1 inh IH BID 08/02/15 12/30/17 History Diskus 250/50] Pantoprazole [Protonix] 40 mg PO DAILY 08/02/15 12/30/17 History Insulin Glargine,Hum.Rec.Anlog 70 unit SQ QAM 08/03/15 12/30/17 History [Lantus Solostar] Insulin Regular [HumuLIN R Vial] 0 unit SC AC 08/03/15 12/30/17 History Sertraline HCl [Zoloft] 150 mg PO DAILY 10/16/16 12/30/17 History Amlodipine [Norvasc] 10 mg PO QAM 10/17/16 12/30/17 History Fenofibrate Nanocrystallized 160 mg PO DAILY 10/17/16 12/30/17 History [Fenofibrate] Gabapentin 600 mg PO TID 10/17/16 12/30/17 History Levothyroxine Sodium 25 mcg PO DAILY 10/17/16 12/30/17 History Lisinopril 20 mg PO BID 10/17/16 12/30/17 History traZODone HCl [Trazodone HCl] 100 mg PO HS 10/17/16 12/30/17 History Albuterol Sulfate [Proair HFA] 2 puff INH Q4HR PRN 03/15/17 12/30/17 History Allopurinol 1 tab PO DAILY 03/15/17 12/30/17 History Aspirin [Aspirin EC] 81 mg PO DAILY 03/15/17 12/30/17 History Atorvastatin Calcium [Lipitor] 40 mg PO HS 03/15/17 12/30/17 History Docusate Sodium 250 mg PO QAM 03/15/17 12/30/17 History Insulin Glargine,Hum.Rec.Anlog 6 unit SQ QPM 03/15/17 12/30/17 History [Lantus Solostar] Nicotine [Nicoderm CQ] 21 mg TD DAILY 03/15/17 12/30/17 History Polyethylene Glycol 3350 [Miralax] 17 gm PO DAILY PRN 03/15/17 12/30/17 History hydrALAZINE HCl 25 mg PO BID 03/15/17 12/30/17 History Magnesium Citrate [Citrate of 296 ml PO DAILY #1 bot 03/16/17 12/30/17 Rx Magnesia] Amoxicillin/Potassium Clav 1 each PO Q12H 7 Days #14 tablet 12/30/17 Rx [Augmentin 875-125 Tablet] traMADol HCl [Tramadol HCl] 50 mg PO Q6HR PRN #30 tablet 12/30/17 Rx - History PMHx:htn, iddm, cad, copd, ckd PSHx: cabg FHx:nc Social:no tad - Review of Systems General: denies: fever/chills Eyes: denies: vision changes ENT: denies: rhinorrhea Respiratory: reports: cough, shortness of breath. denies: congestion Cardiovascular: denies: chest pain, palpitation, edema Gastrointestinal: denies: nausea, vomiting, diarrhea Genitourinary: denies: dysuria Skin: denies: rashes Musculoskeletal: denies: pain, tenderness Neurological: denies: numbness, syncope - Vital signs 153/92, MAP: 112, Pulse: 85, Resp: 22, Temp: 98.1 (Oral), Pain: 6, O2 sat: 96 on (2L Oxygen - Physical Exam Constitutional: NAD, awake, alert and oriented HEENT: EOMI, grossly normal vision, grossly normal hearing Neck: trachea midline Heart: pulses present, no edema Lungs: no respiratory distress Abdomen: soft Musculoskeletal: ROM grossly normal Neurological: no focal deficit, CN II-XII intact Skin: no rash/lesions, good turgor Heme/Lymphatic: no unusual bruising or bleeding Psychiatric: normal mood and affect FMR H&P: Results - Labs Result Diagrams: 02/23/20 05:19 02/23/20 05:19 FMR H&P: A/P - Problem List (1) COPD exacerbation Current Visit: Yes Status: Acute Code(s): J44.1 - CHRONIC OBSTRUCTIVE PULMONARY DISEASE W (ACUTE) EXACERBATION (2) Coronary artery disease Current Visit: No Status: Chronic Code(s): I25.10 - ATHSCL HEART DISEASE OF [place] CORONARY ARTERY W/O ANG PCTRS (3) Diabetes mellitus Current Visit: No Status: Chronic Code(s): E11.9 - TYPE 2 DIABETES MELLITUS WITHOUT COMPLICATIONS (4) Hypertension Current Visit: No Status: Chronic Code(s): I10 - ESSENTIAL (PRIMARY) HYPERTENSION Qualifiers: Hypertension type: essential hypertension Qualified Code(s): I10 - Essential (primary) hypertension - Plan COPD exacerbation - hx suggestive, no wbc, focal lung findings, bnp/trop wnl - alb/ipratropium MDI, pred, azithro - monitor O2% COVID r/o - swab taken in outside ED - droplet/airborne precautions HTN - continue home meds - hydralazine prn IDDM - continue home meds - mod SSI, ACHS checks CKD - aware, monitor CHF - does not appear fluid overloaded at this time - monitor HLD - aware, continue home meds CAD - aware, trop/ekg wnl code: DNAR ppx: lovenox PCP: vinny Dispo: admit for COPD exac, covid r/o, LOS>48 FMR H&P: Upper Level - Plan Date/Time: 02/23/20 0129 I, [], have evaluated this patient and agree with findings/plan as outlined by procurement internship resident. Pertinent changes/additions are listed here. Addendum - Attending - Attending Attestation Date/Time: 02/23/20 0772 I personally evaluated the patient and discussed the management with Dr. Palmer I agree with the History, Examination, Assessment and Plan documented above with any addition or exceptions noted below. CXR showed possible CHF. Clinical hx suggestive of COPD exacerbation. COVID eval in progress. History not as concerning for COVID. Possible d/c in 48-72 hrs pending clinical course.
[2020-02-23] MEDS ORDERED: Acetaminophen 650 MG Suppository PR PRN (02:31)
[2020-02-23] MEDS ORDERED: Ipratropium Oral Inhaler INH PRN (02:31)
[2020-02-23] MEDS ORDERED: Dextrose 50% Abboject 50 ML SYRINGE SLOW IVP PRN (02:31)
[2020-02-23] MEDS ORDERED: Ondansetron ODT 4 MG TAB PO PRN (02:31)
[2020-02-23] MEDS ORDERED: hydrALAZINE 20 MG/ML VIAL SLOW IVP PRN (02:31)
[2020-02-23] MEDS ORDERED: Ondansetron PF 4 MG/2 ML Vial IVP PRN (02:31)
[2020-02-23] MEDS ORDERED: Dextrose 5% in Water 1,000 ML IV PRN (02:31)
[2020-02-23] MEDS ORDERED: PROVENTIL INHALER 6.7 G (200 INHALATIONS) INH SCH (02:31)
[2020-02-23] MEDS ORDERED: Azithromycin 500 MG in Sodium Chloride 0.9% 250 ML 250 ML IVPB SCH (03:00)
[2020-02-23] MEDS: Albuterol 200 PUFF (6.7GM INHALER) INH SCH ×6 (03:38→23:14)
[2020-02-23 04:13] VITALS: BMI 30.7
[2020-02-23 05:28] LABS: #Basophils 0.1 thou/uL (0.0-0.2); #Eosinphils 0.4 thou/uL (0.0-0.7); #Lymphocytes 2.7 thou/uL (1.20-3.40); #Neutrophils 6.8 thou/uL (1.40-6.50); %Basophils 0.5 % (0.0-1.0); %Eosinophils 3.3 % (0.0-10.0); %Lymphocytes 24.6 % (21.0-51.0); %Monocytes 9.2 % (0.0-10.0); %Neutrophils 62.5 % (42.0-75.0); Hemoglobin 15.7 g/dL (14.0-18.0); Mean Corpuscular HGB CONC 31.3 g/dL (32.0-36.0); Mean Corpuscular Hemoglobin 29.8 pg (27.0-31.0); Mean Corpuscular Volume 95.1 fL (78.0-98.0); Mean Platelet Volume 7.1 fL (7.4-10.4); Platelet Count 230 thou/uL (130-400); RBC Distribution Width 14.4 % (11.5-14.5); Red Blood Cell (RBC) Count 5.28 mill/uL (4.70-6.10); White Blood Cell (WBC) Count 10.8 thou/uL (4.8-10.8)
[2020-02-23 05:52] LABS: ALT (SGPT) 18 U/L (8-55); AST (SGOT) 23 U/L (5-34); Alkaline Phosphatase 48 U/L (40-110); Anion Gap 12 mmol/L (10-20); BUN (Urea Nitrogen) 19 mg/dL (8.4-25.7); Bilirubin, Total 0.3 mg/dL (0.2-1.2); Calc. Creatinine Clearance 61 mL/min (70-130); Calcium 8.6 mg/dL (7.8-10.44); Carbon Dioxide 28 mmol/L (23-31); Chloride 99 mmol/L (98-107); Estimated GFR-MDRD 44; Globulin 2.6 g/dL (2.4-3.5); Glucose 241 mg/dL (80-115); Potassium 4.2 mmol/L (3.5-5.1); Protein, Total 6.6 g/dL (5.8-8.1); Sodium 135 mmol/L (136-145)
[2020-02-23 05:55] LABS: Troponin I Less than 0.010 ng/mL (< 0.028)
[2020-02-23] MEDS: Allopurinol 300 MG TAB PO SCH (08:19)
[2020-02-23] MEDS: Enoxaparin Sodium 40 MG/0.4 ML SYRINGE SC SCH (08:19)
[2020-02-23] MEDS: Aspirin 81 mg Enteric Coated Tablet PO SCH (08:19)
[2020-02-23] MEDS: Carvedilol 25 MG TAB PO SCH ×2 (08:19→16:32)
[2020-02-23] MEDS: predniSONE 20 MG TAB PO SCH (08:19)
[2020-02-23] MEDS: HumaLOG 300 UNITS/3 ML VIAL SC PRN ×3 (12:42→21:27)
[2020-02-23] MEDS: Acetaminophen 325 MG TAB PO PRN ×2 (18:29→23:14)
[2020-02-23] MEDS: Benzonatate 100 MG CAP PO PRN ×2 (18:29→23:31)
[2020-02-24] MEDS: Albuterol 200 PUFF (6.7GM INHALER) INH SCH ×6 (02:50→22:08)
[2020-02-24] MEDS: Benzonatate 100 MG CAP PO PRN (05:02)
[2020-02-24] MEDS: Acetaminophen 325 MG TAB PO PRN ×2 (05:02→20:41)
[2020-02-24] MEDS: HumaLOG 300 UNITS/3 ML VIAL SC PRN ×4 (05:18→21:00)
[2020-02-24 06:27] LABS: Anion Gap 13 mmol/L (10-20); BUN (Urea Nitrogen) 24 mg/dL (8.4-25.7); Calc. Creatinine Clearance 65 mL/min (70-130); Calcium 8.7 mg/dL (7.8-10.44); Carbon Dioxide 28 mmol/L (23-31); Chloride 97 mmol/L (98-107); Estimated GFR-MDRD 48; Glucose 229 mg/dL (80-115); Potassium 4.2 mmol/L (3.5-5.1); Sodium 134 mmol/L (136-145)
[2020-02-24] MEDS: Carvedilol 25 MG TAB PO SCH ×2 (07:53→16:31)
[2020-02-24] MEDS: Aspirin 81 mg Enteric Coated Tablet PO SCH (07:53)
[2020-02-24] MEDS: Allopurinol 300 MG TAB PO SCH (07:53)
[2020-02-24] MEDS: Enoxaparin Sodium 40 MG/0.4 ML SYRINGE SC SCH (07:53)
[2020-02-24] MEDS: predniSONE 20 MG TAB PO SCH (07:53)
--- NOTE | 2020-02-24 08:06 | PDOC.FM ---
- Subjective Subjective: Nursing states he did well overnight. He reports feeling better but is coughing more. He denies fever, chills, nausea, or vomiting - Objective MAR Reviewed: Yes Vital Signs & Weight: Vital Signs (12 hours) Temp Pulse Resp BP Pulse Ox 02/24/20 05:00 97.9 F 90 18 143/70 H 95 02/23/20 23:31 98.9 F 88 18 150/77 H 96 Weight Weight 89 kg I&O: 02/23/20 02/24/20 02/25/20 06:59 06:59 06:59 Intake Total 1360 Balance 1360 Result Diagrams: 02/23/20 05:19 02/24/20 05:45 Phys Exam - Physical Examination Constitutional: NAD HEENT: moist MMs Neck: no JVD Respiratory: wheezing present Cardiovascular: RRR, no significant murmur Gastrointestinal: soft, no distention, positive bowel sounds Musculoskeletal: no edema, pulses present Neurological: moves all 4 limbs Psychiatric: A&O x 3 Skin: cap refill <2 seconds Dx/Plan (1) COPD exacerbation Code(s): J44.1 - CHRONIC OBSTRUCTIVE PULMONARY DISEASE W (ACUTE) EXACERBATION Status: Acute (2) Hypomagnesemia Code(s): E83.42 - HYPOMAGNESEMIA Status: Acute (3) Hypophosphatemia Code(s): E83.39 - OTHER DISORDERS OF PHOSPHORUS METABOLISM Status: Acute (4) COPD (chronic obstructive pulmonary disease) Status: Chronic Qualifiers: COPD type: emphysema (5) Coronary artery disease Code(s): I25.10 - ATHSCL HEART DISEASE OF [place] CORONARY ARTERY W/O ANG PCTRS Status: Chronic (6) Diabetes mellitus Code(s): E11.9 - TYPE 2 DIABETES MELLITUS WITHOUT COMPLICATIONS Status: Chronic - Plan Plan: This is a 59 yo male with a pmh of HTN, IDDM, CKD, COPD COPD exacerbation -Continue steroids, albuterol inhaler, home meds -Procal negative, abx stopped -Improving O2, likely DC today or tomorrow Covid r/o -Taken at outside ER -Precautions in place HTN -Continue home meds IDDM -Continue home meds -Blood sugars are slightly elevated 2/2 steroids CKD -Stable CHF -No overload at this time -No recent Echo available for review HLD -Continue home meds CAD Addendum - Attending - Attending Attestation Date/Time: 02/24/20 4471 I personally evaluated the patient and discussed the management with Dr. Jasmine. I agree with the History, Examination, Assessment and Plan documented above with any addition or exceptions noted below. COVID pending. Still requiring oxygen. Will attempt to wean today. likely d/c in next 24-48 hrs.
[2020-02-24] MEDS: Dextromethorphan Polistirex 30 MG/5 ML (89 ML BOTTLE) PO PRN ×3 (14:02→22:06)
[2020-02-25] MEDS: Albuterol 200 PUFF (6.7GM INHALER) INH SCH ×3 (02:45→09:19)
[2020-02-25] MEDS: Acetaminophen 325 MG TAB PO PRN (05:14)
[2020-02-25] MEDS: Dextromethorphan Polistirex 30 MG/5 ML (89 ML BOTTLE) PO PRN (05:14)
[2020-02-25] MEDS: HumaLOG 300 UNITS/3 ML VIAL SC PRN ×2 (05:37→12:18)
--- NOTE | 2020-02-25 07:26 | PDOC.FM ---
- Subjective Subjective: Patient sitting up in bed this morning. States his breathing is much better, chest does not feel as tight. Says he has not had a cough since last night. No O2 requirement over night and O2 sats have been stable on room air. - Objective MAR Reviewed: Yes Vital Signs & Weight: Vital Signs (12 hours) Temp Pulse Resp BP Pulse Ox 02/25/20 05:36 97.6 F 77 18 143/76 H 93 L 02/24/20 23:53 96 02/24/20 20:00 97.8 F 82 18 152/78 H 96 Weight Weight 89 kg I&O: 02/24/20 02/25/20 02/26/20 06:59 06:59 06:59 Intake Total 1360 1410 Balance 1360 1410 Result Diagrams: 02/23/20 05:19 02/24/20 05:45 Phys Exam - Physical Examination Constitutional: NAD HEENT: moist MMs, sclera anicteric Neck: no JVD, supple, full ROM Respiratory: no wheezing, no rhonchi, clear to auscultation bilateral Cardiovascular: RRR, no significant murmur Gastrointestinal: soft, positive bowel sounds Musculoskeletal: no edema, pulses present Neurological: normal sensation, moves all 4 limbs Psychiatric: normal affect, A&O x 3 Skin: no rash, normal turgor Dx/Plan (1) COPD exacerbation Code(s): J44.1 - CHRONIC OBSTRUCTIVE PULMONARY DISEASE W (ACUTE) EXACERBATION Status: Acute (2) Diabetes mellitus Code(s): E11.9 - TYPE 2 DIABETES MELLITUS WITHOUT COMPLICATIONS Status: Chronic Qualifiers: Diabetes mellitus type: type 2 Diabetes mellitus intermediate project manager insulin use: with intermediate project manager use Diabetes mellitus complication status: with hyperglycemia Qualified Code(s): E11.65 - Type 2 diabetes mellitus with hyperglycemia; Z79.4 - detention (current) use of insulin (3) Hypertension Code(s): I10 - ESSENTIAL (PRIMARY) HYPERTENSION Status: Chronic Qualifiers: Hypertension type: essential hypertension Qualified Code(s): I10 - Essential (primary) hypertension - Plan Plan: This is a 59 yo male with a pmh of HTN, IDDM, CKD, COPD: #COPD exacerbation -Continue steroids, albuterol inhaler, home meds -Procal negative, abx stopped -Improving O2, has been on room air for past 12+ hours #Covid r/o--NEGATIVE -Taken at outside ER -Precautions in place, discontinued on 02/24 d/t negative result #HTN -Continue home meds #IDDM -Continue home meds -Blood sugars are slightly elevated 2/2 steroids #CKD -Stable #CHF -No overload at this time -No recent Echo available for review #HLD -Continue home meds #CAD Diet: CC VTE: Lovenox Code status: DNR-DNI Dispo: Stable, continue to monitor respiratory status and O2 requirement. Try to wean patient off oxygen today. Anticipate discharge later today. Addendum - Attending - Attending Attestation Date/Time: 02/25/20 8806 I personally evaluated the patient and discussed the management with Dr. Xavier. I agree with the History, Examination, Assessment and Plan documented above with any addition or exceptions noted below. Off oxygen overnight. d/c home today. COVID negative.
[2020-02-25] MEDS: Aspirin 81 mg Enteric Coated Tablet PO SCH (08:20)
[2020-02-25] MEDS: Carvedilol 25 MG TAB PO SCH (08:21)
[2020-02-25] MEDS: Allopurinol 300 MG TAB PO SCH (08:21)
[2020-02-25] MEDS: Enoxaparin Sodium 40 MG/0.4 ML SYRINGE SC SCH (08:23)
[2020-02-25] MEDS: predniSONE 20 MG TAB PO SCH (08:23)
[2020-02-25 11:31] VITALS: BP 153/92; TEMP 98
--- NOTE | 2020-02-25 20:28 | DIS ---
DATE OF ADMISSION: 02/23/2020 DATE OF DISCHARGE: 02/25/2020 RESIDENT: Catalina Xavier DO ADMITTING ATTENDING: Batsheva Norton MD DISCHARGE ATTENDING: Yfn Aguilar MD CONSULTS: None. PROCEDURES: Chest x-ray on February 22, 2020: Mild decompensated congestive heart failure. PRIMARY DIAGNOSIS: Chronic obstructive pulmonary disease exacerbation. SECONDARY DIAGNOSES: 1. COVID rule out, negative. 2. Hypertension. 3. Insulin-dependent diabetes mellitus. 4. Chronic kidney disease. 5. Congestive heart failure. 6. Hyperlipidemia. 7. Coronary artery disease. DISCHARGE MEDICATIONS: 1. Acetaminophen 650 mg p.o. q.4 hours p.r.n. 2. Albuterol sulfate 2 puffs inhaled q.4 hours p.r.n. 3. Prednisone 40 mg p.o. daily for 4 additional days. 4. Atenolol 50 mg p.o. daily. 5. Sertraline 100 mg p.o. daily. 6. Synthroid 25 mcg p.o. daily. 7. Gabapentin 600 mg p.o. t.i.d. 8. Fenofibrate 160 mg p.o. daily. 9. Amlodipine 10 mg p.o. daily. 10. Lisinopril 20 mg p.o. b.i.d. 11. Trazodone 100 mg p.o. at bedtime. 12. Aspirin 81 mg p.o. daily. 13. Allopurinol 300 mg p.o. daily. 14. Lantus 80 units subcu b.i.d. 15. Hydralazine 50 mg p.o. b.i.d. 16. Pioglitazone HCL 30 mg p.o. daily. 17. Fluticasone/salmeterol one inhaled p.r.n. 18. Isosorbide mononitrate 30 mg p.o. daily. 19. Cholecalciferol (vitamin D3) 2000 units p.o. daily. 20. Ventolin inhaler 90 mcg inhaled p.r.n. DISCONTINUED MEDICATIONS: None. HISTORY OF PRESENT ILLNESS/HOSPITAL COURSE: The patient is a 59-year-old male with past medical history significant for COPD, CAD, hypertension, and insulin-dependent diabetes. Approximately 3 days ago, he was installing drywall and the following day developed a productive cough, dyspnea, and wheezing. He denies any prior symptoms to this day. Denies fever, chills, body aches, sick contacts, or other complaints. The patient does not require home oxygen. He has no history of intubation due to a COPD exacerbation. He is using home medications as prescribed. In the [facility], he had a chest x-ray performed, which showed mild congestive heart failure. A COVID swab was taken, which ultimately resulted negative. He was transferred to [facility] for further workup and admission to the floor. Initially, the patient was admitted to the COVID rule-out unit on droplet and airborne precautions. These were later discontinued in the afternoon of February 24, 2020, when his COVID swab resulted negative. The patient was started on steroids and albuterol treatments along with continuing his home medications. The patient was euvolemic on exam and did not require any treatment for volume overload at this admission. The patient continued to clinically progress well with oxygen requirements slowly being titrated down. He was able to have an oxygen saturation above 92% starting in the evening of February 23 and was able to remain on room air overnight and into the morning of February 24. His cough also resolved over the same time period. The patient was deemed stable for discharge home on the morning of February 25, 2020. DISPOSITION: Stable. DISCHARGE INSTRUCTIONS: 1. Location: Home. 2. Diet: Heart healthy. 3. Activity: As tolerated. 4. Follow up with PCP Dr. Parrish in 3 to 5 days for hospital followup. Job ID: [id number]
--- NOTE | 2020-02-26 09:01 | PQF ---
BOBTAIL DRIVER,EYAD SIMMSNAVYA [id number] CLINICAL DOCUMENTATION CLARIFICATION FORM: POST DISCHARGE Addendum to original discharge summary date: ____ Late entry note date: __ DATE:02/26/2020 ATTN: Navya Crawley Please exercise your independent, professional judgment in responding to the clarification form. Clinical indicators are provided on the bottom of this form for your review Please check appropriate box(s): [ x ] Acute Respiratory Failure with Hypoxia [ ] ARDS (Acute Respiratory Distress Syndrome) [ ] Hypoxia [ ] Other diagnosis [ ] Unable to determine In addition, please specify: Present on Admission (POA): [ x] Yes [ ] No [ ] Unable to determine For continuity of documentation, please document condition throughout progress notes and discharge summary. Thank You. CLINICAL INDICATORS - SIGNS / SYMPTOMS / LABS Vital signs 02/22 BP 161/93, Pulse 92, Resp 92, O2 sat 90% ED notes p7 Pt sent here for admission secondary to possible COPD exacerbation vs CoVid ED notes p7 Pt is satting 90% on room air ED notes p7 Hypoxia, COPD, Covid rule out H&P p1 02/22 develop productive cough, dypnea and wheeze RISK FACTORS H&P p3 02/22 59 year-old H&P p3 02/22 COPD exacerbation H&P p3 02/22 CAD H&P p4 02/22 DM H&P p4 02/22 HTN H&P p4 02/22 CHF hospitalist PN p2 02/23 - Emphysema TREATMENTS: JAN 06 Proventil Hfa 2puff JAN 06 Prednisone 40mg oral Respiratory panel 2L Oxygen H&P p4 02/22 Monitor O2 sat (This form is maintained as a part of the permanent medical record) 2014 [facility]. All Rights Reserved [email or web address]
== END 2020-02-25 13:15 | disposition home or self-care (01) | DRG 189 ==
LOC: ERS 00:08 → T4-A 01:26
PROVIDERS: ADMIT Family Medicine; ATTEND Family Medicine
PROC: 8E0ZXY6 Isolation (ICD-10-PCS; principal; 2020-02-23)
DX: J96.01 Acute respiratory failure with hypoxia (principal); I13.0 Hypertensive heart and chronic kidney disease with heart failure and stage 1 through stage 4 chronic kidney disease, or unspecified chronic kidney disease; J43.9 Emphysema, unspecified; Z20.828 Contact with and (suspected) exposure to other viral communicable diseases; Z66 Do not resuscitate; I25.10 Atherosclerotic heart disease of native coronary artery without angina pectoris; E83.42 Hypomagnesemia; E83.39 Other disorders of phosphorus metabolism; I50.9 Heart failure, unspecified; E11.22 Type 2 diabetes mellitus with diabetic chronic kidney disease; N18.9 Chronic kidney disease, unspecified; E78.5 Hyperlipidemia, unspecified; E03.9 Hypothyroidism, unspecified; M10.9 Gout, unspecified; E11.65 Type 2 diabetes mellitus with hyperglycemia; Z79.899 Other long term (current) drug therapy; Z79.82 Long term (current) use of aspirin; Z79.4 Long term (current) use of insulin; Z79.51 Long term (current) use of inhaled steroids; Z95.1 Presence of aortocoronary bypass graft
CPT/HCPCS: 36415; 36416; 80048; 80053; 84145; 84484; 85025; 99285; J0456; J1650; J7050; J7512

== ENCOUNTER 2020-09-27 12:58 | Outpatient (CLI) | payer OTHER ==
--- NOTE | 2020-09-27 13:28 | RAD ---
XR Hip Lt 2-3 View HISTORY: Left hip pain COMPARISON: 06/27/2019 FINDINGS: No fracture or dislocation is identified. Mild degenerative changes are present.
--- NOTE | 2020-09-27 13:36 | RAD ---
EXAM: Cervical spine 5 views including tanning flexion and extension views HISTORY: Radiculopathy, cervical region COMPARISON: 06/28/2020 FINDINGS: No evidence for acute fracture or dislocation or significant acute osseous process. Alignment:No abnormal translation between flexion and extension. Discs: Evidence for disc degenerative change with ligament and facet hypertrophic changes. No evidence for a focal bone lesion. IMPRESSION: Evidence for cervical spondylosis.
== END 2020-09-27 12:59 | disposition home or self-care (01) ==
LOC: BICRAD 12:58
PROVIDERS: ATTEND Nurse Practitioner Family
DX: M25.552 Pain in left hip (principal); M47.22 Other spondylosis with radiculopathy, cervical region; M16.12 Unilateral primary osteoarthritis, left hip
CPT/HCPCS: 72050

== ENCOUNTER 2021-02-16 08:53 | Outpatient (CLI) | payer OTHER ==
[2021-02-16] MEDS ORDERED: Iopamidol-370 76% 500 ML 1 ML ONE (12:56)
== END 2021-02-16 08:54 | disposition home or self-care (01) ==
LOC: BICCT 08:53
PROVIDERS: ATTEND Physician Assistant Medical
DX: R10.9 Unspecified abdominal pain (principal); K76.0 Fatty (change of) liver, not elsewhere classified; B02.9 Zoster without complications; K59.00 Constipation, unspecified
CPT/HCPCS: 74177; 82565; Q9967

== ENCOUNTER 2021-08-16 07:07 | Outpatient (CLI) | payer OTHER | END 2021-08-16 07:08 | disposition home or self-care (01) | LOC: NM 07:07 | PROVIDERS: ATTEND Physician Assistant Medical | DX: K21.00 Gastro-esophageal reflux disease with esophagitis, without bleeding (principal); K59.00 Constipation, unspecified; R11.0 Nausea; R14.0 Abdominal distension (gaseous) | CPT/HCPCS: 78264; A9541 ==

== ENCOUNTER 2022-06-12 10:43 | Outpatient (CLI) | payer OTHER | END 2022-06-12 10:44 | disposition home or self-care (01) | LOC: MRI 10:43 | PROVIDERS: ATTEND Nurse Practitioner Family | DX: M47.26 Other spondylosis with radiculopathy, lumbar region (principal); M47.817 Spondylosis without myelopathy or radiculopathy, lumbosacral region; M48.9 Spondylopathy, unspecified | CPT/HCPCS: 72148 ==

== ENCOUNTER 2022-07-03 12:44 | Outpatient (CLI) | payer OTHER | END 2022-07-03 12:45 | disposition home or self-care (01) | LOC: SCSMRI 12:44 | PROVIDERS: ATTEND Nurse Practitioner Family | DX: M54.16 Radiculopathy, lumbar region (principal) | CPT/HCPCS: 72158; 82565 ==

== ENCOUNTER 2023-01-17 10:32 | Outpatient (CLI) | payer OTHER | END 2023-01-17 10:33 | disposition home or self-care (01) | LOC: SCSMRI 10:32 | PROVIDERS: ATTEND Specialist | DX: M47.26 Other spondylosis with radiculopathy, lumbar region (principal); M51.16 Intervertebral disc disorders with radiculopathy, lumbar region | CPT/HCPCS: 72148 ==

== ENCOUNTER 2023-03-15 08:18 | Outpatient (CLI) | payer OTHER | END 2023-03-15 08:19 | disposition home or self-care (01) | LOC: BICULT 08:18 | PROVIDERS: ATTEND Internal Medicine Nephrology | DX: N18.30 Chronic kidney disease, stage 3 unspecified (principal); N40.0 Benign prostatic hyperplasia without lower urinary tract symptoms | CPT/HCPCS: 76770 ==